=== PATIENT | female | born 1995 | race Two or more races ===

== ENCOUNTER → 2025-04-07 | Outpatient (CLI) | payer OTHER, BC, SELFPAY ==
[2025-04-07 09:57] LABS: Collection Type, Urine Clean Catch
[2025-04-07 10:17] LABS: Basophils # (Auto) 0.0 Thou/mm3 (0.0-0.2); Basophils % (Auto) 1 % (0-2.5); Eosinophils # (Auto) 0.0 Thou/mm3 (0.0-0.5); Eosinophils % (Auto) 1 % (0-10); Hematocrit 40.0 % (36.0-46.0); Hemoglobin 13.3 g/dL (12.0-16.0); Immature Granulocytes Auto 0.02 Thou/mm3 (0.00-0.00); Lymphocytes # (Auto) 2.0 Thou/mm3 (1.0-4.8); Lymphocytes % (Auto) 25 % (10-50); Mean Corpuscular HGB Conc 33.3 g/dl (31.0-37.0); Mean Corpuscular Hemoglobin 30.0 pg (25.0-35.0); Mean Corpuscular Volume 90 fL (80-100); Monocytes # (Auto) 0.4 Thou/mm3 (0.0-0.8); Monocytes % (Auto) 5 % (0-12); Neutrophils # (Auto) 5.4 Thou/mm3 (1.8-7.7); Neutrophils % (Auto) 69 % (37-80); Nucleated Red Blood Cell # 0.00 Thou/mm3 (0.00-0.00); Nucleated Red Blood Cell % 0 /100 WBC (0); Platelet Count 305 Thou/mm3 (140-440); RDW Standard Deviation 41.9 fL (36.4-46.3); Red Blood Count 4.43 Miln/mm3 (4.00-5.20); White Blood Count 7.8 Thou/mm3 (3.6-11.0)
[2025-04-07 10:24] LABS: Bacteria,Urine Rare; Bilirubin,Urine Negative (Negative); Blood,Urine 1+ (Negative); Clarity,Urine Clear (Clear/Hazy); Color,Urine Yellow (Lt Yel-Yel); Culture Indicated,Urine Not Indicated; Glucose, Urine Negative (Negative); Ketones,Urine 1+ (Negative); Leukocyte Esterase,Urine Negative (Negative); Nitrite,Urine Negative (Negative); PH,Urine 6.0 (5.0-7.0); Protein,Urine Trace (Neg - Trace); RBC,Urine 2 /hpf (0-3); Specific Gravity,Urine 1.032 (1.001-1.035); Squamous Epithelial Cell,Urine 2 /hpf (0-5); Urobilinogen,Urine Negative mg/dL (0.0-1.0); WBC,Urine 2 /hpf (0-5)
[2025-04-07 10:30] LABS: Glucose Estimated Average 97 mg/dL (80-131); Hemoglobin A1C 5.0 % Hgb (4.8-6.0)
[2025-04-07 10:38] LABS: Vitamin D 25 Hydroxy Total 22.3 ng/mL (7.3-40.2)
[2025-04-07 10:40] LABS: Alanine Aminotransferase 13 U/L (10-49); Albumin, Serum 4.6 gm/dL (3.5-5.0); Albumin/Globulin Ratio 1.6 (1.2-2.2); Alkaline Phosphatase 69 U/L (46-116); Anion Gap 8 (7-16); Aspartate Amino Transferase 16 U/L (0-34); BUN/Creatinine Ratio 18 Ratio (12-20); Bilirubin,Total 0.7 mg/dL (0.3-1.2); Blood Urea Nitrogen 11 mg/dL (9-23); Calcium 9.0 mg/dL (8.3-10.6); Calcium (Corrected) 9.0 mg/dL (8.5-10.1); Carbon Dioxide 25.3 mMol/L (20.0-31.0); Cardiac Risk Estimate 3.2 RATIO (3.7-5.6); Chloride 106 mMol/L (98-107); Cholesterol 169 mg/dL (132-200); Creatinine (Component) 0.6 mg/dL (0.6-1.3); Globulin 2.8 gm/dL (2.3-3.5); Glucose 93 mg/dL (74-106); HDL Cholesterol 53 mg/dL (40-60); LDL Cholesterol,Calculated 93 mg/dL (0-130); Osmolality,Calculated 276 (275-295); Potassium 4.2 mMol/L (3.4-5.1); Sodium 139 mMol/L (136-145); Thyroid Stimulating Hormone 1.22 uIU/mL (0.55-4.78); Total Protein 7.4 gm/dL (5.7-8.2); Triglycerides 114 mg/dL (30-150); eGFR > 60 See Note
[2025-04-07 11:08] LABS: Urea Breath Test Negative (Negative)
== END | disposition home or self-care (01) ==
LOC: COPL 09:11
PROVIDERS: PCP Nurse Practitioner Family; Referring Provider Nurse Practitioner Family; Visit Provider Nurse Practitioner Family
DX: Z00.00 Encounter for general adult medical examination without abnormal findings (principal); E55.9 Vitamin D deficiency, unspecified; R14.0 Abdominal distension (gaseous)
CPT/HCPCS: 36415; 80053; 80061; 81001; 82306; 83013; 83014; 83036; 84443; 85025

== ENCOUNTER → 2025-06-10 | Outpatient (CLI) | payer OTHER, BC, SELFPAY ==
[2025-06-10 17:05] LABS: HCG Titer if Positive Positive
[2025-06-10 18:06] LABS: Beta HCG,Quantitative 16897 mIU/mL (<5.0)
== END | disposition home or self-care (01) ==
LOC: COPL 16:07
PROVIDERS: PCP Nurse Practitioner Family; Referring Provider Nurse Practitioner Family; Visit Provider Nurse Practitioner Family
DX: Z32.01 Encounter for pregnancy test, result positive (principal)
CPT/HCPCS: 36415; 84702; 84703

== ENCOUNTER 2025-06-28 07:57 | Outpatient (AMB) | payer OTHER, BC, SELFPAY ==
[2025-06-28 08:34] VITALS: BP 110/77; PULSE 84; RESP 17; TEMP 36.7; O2SAT 96; BMI 33.8
--- NOTE | 2025-06-28 08:34 | AMB.OBINITIA ---
Vital Signs 06/28/25 08:34 Height 1.55 m Height Method Stated Weight 81.306 kg Weight Measurement Method Standing Scale BMI 33.8 BP 110/77 Blood Pressure Source Automatic Cuff Blood Pressure Location Right Upper Arm Position Sitting Respiration 17 Pulse 84 Pulse Source Monitor Temp 98.0 F Temp Source Temporal Artery Scan Pulse Oximetry (%) 96 Oxygen Delivery Method Room Air Allergies/Home Meds Allergies & Medications Allergies No Known Allergies Allergy (Verified 06/28/25 08:35) Medication Reconciliation No Known Home Medications 11/03/17 [History Confirmed 06/28/25] Intake Visit Data Collection New Patient or Established: Established Patient (seen at [facility] within 3 years) Reason for Visit:: OBI Seen by Clinical Staff ONLY (RN/MA): No Manager Desktop Required: No Do You Feel Safe at Home: Yes Authorities Contacted: N/A PCP or OBGYN visit in last 3 months: No Hx Now: Yes Are you currently on any form of Control: No Last menstrual period: 04/20/25 Pain Present Currently: No Pain Scale Used: Rivera-Rodriguez/Numerical Pain scale:: 0 Smoking Status Smoking Status: Never smoker Questionnaires Covid-19 Vaccine Questionnaire Has patient been vacinated for Covid-19 Have you been vacinated for Covid-19: No PHQ-9 PHQ-2 Over the last 2 weeks, how often have you been bothered by any of the following problems? 1. Little interest or pleasure in doing things: not at all 2. Feeling down, depressed, or hopeless: not at all Total score: 0 PHQ-9 3. Trouble falling or staying asleep, or sleeping too much: Not at all 4. Feeling tired or having little energy: Not at all 5. Poor appetite or overeating: Not at all 6. Feeling bad about yourself - or that you are a failure or have let yourself or your family down: Not at all 7. Trouble concentrating on things, such as reading the newspaper or watching television: Not at all 8. Moving or speaking so slowly that other people could have noticed? - Or the opposite - being so fidgety or restless that you have been moving around a lot more than usual: not at all 9. Thoughts that you would be better off or of hurting yourself in some way: Not at all Total score: 0 If you checked off any problems, how difficult have these problems made it for you to do your work, take care of things at home, or get along with other people?: not difficult at all Source: Developed by Drs. Carlos Carrasco, Zoe Lr, Scott Jaime and colleagues, with an educational elodia from [employer]. Depression screen completed yes Social History Living Situation History Marital Status: Life Partner Lives With: Family Housing: House Tobacco History Smoking Status: Never smoker Second Hand Smoke Exposure: No Alcohol History Alcohol Intake: Never Domestic Abuse History Do You Feel Safe at Home: Yes History of Present Illness HPI Narrative 29-year-old presents for early visit and for review of ultrasound and lab results. Transvaginal ultrasound shows intrauterine gestational sac measuring 6 weeks which is consistent with no heartbeat and no motion indicating demise. Patient denies any vaginal bleeding or any other complaints. OB Initial Visit Menstrual History Menstrual reliability: definite Flow: normal Menstrual regularity: regular Monthly: Yes Age at menarche: 14 On control pills at conception: No OB History : 2 Para: 1 # of Living Children: 1 Delivery History 1st : Child's name: JOHNSON TRAN date: 05/24/23 sex: female Delivery type: weight (lbs): 3175.147 g History of depression before or after : Yes Infection History & Risk Evaluation History of STDs: none HIV risk evaluation: low risk Hepatitis B risk evaluation: low risk Patient or partner has history of Genital Herpes: No Varicella/chicken pox status: unknown Genetic Screening & History Genetic Screening/Teratology Counseling - Includes patient, baby's father, or anyone in either family with: 1. Patient's age 35 years or older as of estimated date of delivery: No 2. Thalassemia (Polish, Armenian, Mediterranean, or Background); MCV less than 80: No 3. Neural Tube Defect (Meningomyelocele, Spina Bifida, or Anencephaly): No 4. Congenital Heart Defect: No 5. Down Syndrome: No 6. Anton-Sachs (Ashkenazi Advent, Cajun, [place]onian [place]): No 7. Joi Disease (Ashkenazi Advent): No 8. Familial Dysautonomia (Ashkenazi Advent): No 9. Sickle Cell Disease or Trait (): No 10. Hemophilia or other blood disorders: No 11. Muscular Dystrophy: No 12. Cystic Fibrosis: No 13. Stanley's Chorea: No 14. Mental Retardation/Autism: No 15. Other inherited genetic or chromosomal disorder: No 16. Maternal Metabolic Disorder (EG,TYPE 1 Diabetes, PKU): No 17. Patient or baby's father had a child with defects not listed above: No 18. Recurrent loss or a stillbirth: No 19. Medications (including supplements, vitamins, herbs or otc drugs)/illicit/recreational drugs/alcohol since last menstrual period: No 20. Any other: No Infection History 1. Live with someone with TB or exposed to TB: No 2. Rash or viral illness since last menstrual period: No 3. Hepatitis B,C: No Other (see comments) Source: [employer] Exam General General Appearance: alert, in no apparent distress and healthy appearing Head Head exam: atraumatic Neck Neck exam: Present normal inspection and trachea midline Chest Chest inspection: Present normal inspection and symmetric chest wall rise External exam: Present normal external exam; Absent tenderness Neuro Neurological exam: Present oriented X3 Psych Psychiatric exam: Present normal affect and normal mood Office Procedures OBC Clinic LOC & Office Proc's Nursing/Assessment Patient Status: Initial/New Patient OB Clinic Nursing Assessment: Medication Reconciliation, Update PMH in EMR and Vital Signs OB Clinic Coordination of Care: Complex Care and Chronic Disease 1-5, Education Complex Pt/Fam, Consent,records obtained, informed consent, Results/Orders obtained and Staff clarify orders Special Needs: Heart tones New Patient Charge New Patient Point Assignment: 1124 New Patient Point Charge: COMPUTER SYSTEMS AUDITOR Level 4 ([id number]) Assessment & Plan Diagnosis / Problem List (1) Uterine size date discrepancy: Status: Acute Plan 29-year-old with missed at 6 weeks I discussed in detail the management options, including medical management with misoprostol and surgical management with suction dilation and curettage (D&C). The benefits, risks, and alternatives of each option were reviewed comprehensively, including the potential for incomplete evacuation, infection, bleeding, need for additional procedures, and anesthesia-related risks. After careful discussion and review of all options, the patient elected to proceed with suction D&C for definitive management. All questions were answered, and informed consent was obtained.
== END 2025-06-28 09:21 | disposition home or self-care (01) ==
LOC: HODSOBC 07:57
PROVIDERS: Supervising Provider Obstetrics & Gynecology; Visit Provider Obstetrics & Gynecology
DX: O02.1 Missed abortion (principal)
CPT/HCPCS: 99204; G0463

== ENCOUNTER → 2025-06-28 | Outpatient (CLI) | payer OTHER, BC, SELFPAY ==
--- NOTE | 2025-06-28 16:15 | XR_ITS ---
Examination: Complete OB ultrasound, less than 14 weeks, transabdominal Date and time of exam: June 28, 2025, 1630 hours INDICATIONS: Size dates discrepancy Technique: Obstetrical ultrasound images less than 14 weeks performed via transabdominal imaging Findings: Uterus 12.7 cm retroverted Intrauterine gestational sac 2.1 cm corresponds to 7 weeks 0 days gestational age No pole, no cardiac activity Right ovary 3.3 cm arterial flow. Left ovary 3.7 cm arterial flow 25 mm cyst IMPRESSION: Empty intrauterine gestational sac corresponding to 7-week 0-day gestational age Recommend short-term follow-up to exclude demise.
--- NOTE | 2025-06-28 16:15 | XR_ITS ---
Examination: OB Transvaginal ultrasound of the pelvis, complete Technique: Transvaginal sonographic images pelvis performed using jose scale imaging Exam date and time: June 28, 2025, 1644 hours INDICATIONS: Size dates discrepancy FINDINGS: Uterus 10.7 cm CRL 0.4 cm corresponds to 6 weeks 1 day gestational age No cardiac motion, no movement Right ovary 2.9 cm arterial flow. Left ovary 3.6 cm arterial flow 25 mm cyst IMPRESSION: Findings consistent with demise, recommend short-term follow-up transvaginal pelvic sonography.
[2025-06-28 16:33] LABS: Misc Send Out* See Sep Rpt
[2025-06-28 16:51] LABS: Collection Type, Urine Clean Catch
[2025-06-28 17:53] LABS: Bacteria,Urine Rare; Bilirubin,Urine Negative (Negative); Blood,Urine Negative (Negative); Budding Yeast,Urine Present; Clarity,Urine Clear (Clear/Hazy); Color,Urine Yellow (Lt Yel-Yel); Culture Indicated,Urine Not Indicated; Glucose, Urine Negative (Negative); Ketones,Urine 1+ (Negative); Leukocyte Esterase,Urine Positive (Negative); Nitrite,Urine Negative (Negative); PH,Urine 6.5 (5.0-7.0); Protein,Urine Trace (Neg - Trace); RBC,Urine 9 /hpf (0-3); Specific Gravity,Urine 1.026 (1.001-1.035); Squamous Epithelial Cell,Urine 56 /hpf (0-5); Urobilinogen,Urine Negative mg/dL (0.0-1.0); WBC,Urine 8 /hpf (0-5)
[2025-06-28 19:53] LABS: Syphilis Nonreactive (Nonreactive)
[2025-06-28 20:16] LABS: Hepatitis B Surface Antigen Non Reactive (Non React); Hepatitis C Antibody Non Reactive (Non React); Rubella, IgG Antibody Reactive (Immune)
[2025-06-29 09:39] LABS: Chlamydia trachomatis PCR Negative (Not Detect); Neisseria Gonorrhoeae DNA PCR Negative (Not Detect); Trichomonas Negative (Negative)
== END | disposition home or self-care (01) ==
LOC: CDIM 16:06 → COPL 16:15 → CDIM 08-05 09:12
PROVIDERS: PCP Family Medicine; Referring Provider Obstetrics & Gynecology; Visit Provider Obstetrics & Gynecology
DX: O26.849 Uterine size-date discrepancy, unspecified trimester (principal)
CPT/HCPCS: 36415; 76801; 76817; 81001; 86762; 86780; 86787; 86803; 86850; 86900; 86901; 87340; 87491; 87591; 87661

== ENCOUNTER 2025-07-07 06:45 | Day surgery (SDC) | payer OTHER, BC, SELFPAY ==
[2025-07-06 06:29] VITALS: BMI 34.0
[2025-07-06 08:18] LABS: Alanine Aminotransferase 8 U/L (10-49); Albumin, Serum 4.6 gm/dL (3.5-5.0); Albumin/Globulin Ratio 1.9 (1.2-2.2); Alkaline Phosphatase 59 U/L (46-116); Anion Gap 10 (7-16); Aspartate Amino Transferase 15 U/L (0-34); BUN/Creatinine Ratio 12 Ratio (12-20); Bilirubin,Total 0.6 mg/dL (0.3-1.2); Blood Urea Nitrogen 7 mg/dL (9-23); Calcium 9.1 mg/dL (8.3-10.6); Calcium (Corrected) 9.1 mg/dL (8.5-10.1); Carbon Dioxide 24.9 mMol/L (20.0-31.0); Chloride 106 mMol/L (98-107); Creatinine (Component) 0.6 mg/dL (0.6-1.3); Estimated Creatinine Clearance 136.3 mL/min (>60); Globulin 2.4 gm/dL (2.3-3.5); Glucose 95 mg/dL (74-106); Osmolality,Calculated 279 (275-295); Potassium 4.1 mMol/L (3.4-5.1); Sodium 141 mMol/L (136-145); Total Protein 7.0 gm/dL (5.7-8.2); eGFR > 60 See Note
[2025-07-07] VITALS (7 sets, daily range): BP systolic 106–133; BP diastolic 75–88; PULSE 10–101; RESP 14–20; TEMP 36.4–37; O2SAT 95–100; BMI 33.4
[2025-07-07] MEDS: RINGERS LACTATED 1000 ML 1,000 ML 20 ML IV (07:24)
[2025-07-07 07:42] LABS: Basophils # (Auto) 0.0 Thou/mm3 (0.0-0.2); Basophils % (Auto) 1 % (0-2.5); Eosinophils # (Auto) 0.1 Thou/mm3 (0.0-0.5); Eosinophils % (Auto) 1 % (0-10); Hematocrit 36.6 % (36.0-46.0); Hemoglobin 12.7 g/dL (12.0-16.0); Immature Granulocytes Auto 0.02 Thou/mm3 (0.00-0.00); Lymphocytes # (Auto) 1.7 Thou/mm3 (1.0-4.8); Lymphocytes % (Auto) 24 % (10-50); Mean Corpuscular HGB Conc 34.7 g/dl (31.0-37.0); Mean Corpuscular Hemoglobin 30.7 pg (25.0-35.0); Mean Corpuscular Volume 88 fL (80-100); Monocytes # (Auto) 0.4 Thou/mm3 (0.0-0.8); Monocytes % (Auto) 5 % (0-12); Neutrophils # (Auto) 5.0 Thou/mm3 (1.8-7.7); Neutrophils % (Auto) 69 % (37-80); Nucleated Red Blood Cell # 0.00 Thou/mm3 (0.00-0.00); Nucleated Red Blood Cell % 0 /100 WBC (0); Platelet Count 285 Thou/mm3 (140-440); RDW Standard Deviation 42.3 fL (36.4-46.3); Red Blood Count 4.14 Miln/mm3 (4.00-5.20); White Blood Count 7.3 Thou/mm3 (3.6-11.0)
--- NOTE | 2025-07-07 09:19 | PD.GYNPROC ---
Operative Note - RESISTANCE WELDER Procedure Date of procedure: 07/07/25 Procedure Performed: Suction dilatation and curettage Indication: Missed at 6 weeks Anesthesia type: General Procedure description: Informed consent was obtained and the patient was taken to the operating room. Identity was confirmed using two patient identifiers. The patient was positioned on the operating table, and general anesthesia was administered. She was then placed in the dorsal lithotomy position using Rakan stirrups. The perineum was prepped and draped in the usual sterile fashion. A straight catheter was used to empty the bladder. A weighted speculum was placed in the posterior vaginal fornix, and a right-angle retractor was used to retract the anterior vaginal wall. An atraumatic grasper was used to gently grasp the anterior lip of the cervix, which was placed under traction. Cervical length from the external to internal os was assessed, and a uterine sound was used to measure uterine depth. The cervix was noted to be dilated to approximately 6 mm. Dilator were used to dilate the cervix to 8mm. A 8 mm suction cannula was introduced through the cervical os, and multiple gentle passes were performed until evacuation of all tissue and blood clots was complete. Endometrial grating was palpated, and the uterus was noted to have contracted appropriately. The suction cannula was removed, and a gentle curettage was performed using a standard curette. All instruments were then withdrawn. Uterine bleeding was minimal. The atraumatic grasper was removed from the cervix, which was visualized and found to be hemostatic. The speculum was removed from the vaginal canal. The patient was then cleaned, undraped, and taken out of the lithotomy position. General anesthesia was reversed, and the patient was transferred to the recovery room in stable and awake condition. The procedure was well tolerated. All instrument, sponge, and lap counts were correct ?2. Estimated blood loss (ml): 200 Complications: none Surgical staff Operation Date: 07/07/25 09:00 Case Staff Anesthesiologist: Grey Lynch Diagnosis Discharge Diagnosis (1) Missed : Status: Acute Problem List Completed Was Problem List Reviewed/Reconciled?: Yes
--- NOTE | 2025-07-07 09:25 | SUR.PHASEI ---
0902 Patient arrived to recovery resting comfortably in [facility], on oxygen 4L via nasal cannula, breathing unlabored, vital signs stable, denies pain and nausea, dressing intact to vaginal area; peripad, no bleeding noted, report received from Dr. Lynch and Claudia GUSTAFSON
--- NOTE | 2025-07-07 10:20 | SUR.PHASEII ---
1020 patient meets discharge criteria from recovery, awake and alert, breathing unlabored, vital signs stable, denies pain and nausea, ate a jello and drinking 7up; tolerated well, assisted with dressing into her clothing by her , dressing intact; no bleeding noted, discharge instructions given to patient and patients , signed discharge instructions. Patient given all her belongings prior to discharge, transported via wheelchair and left in a private vehicle.
[2025-07-07 10:51] LABS: Misc Send Out* See Sep Rpt
== END 2025-07-07 09:50 | disposition home or self-care (01) ==
PROVIDERS: PCP Anesthesiology; Referring Provider Obstetrics & Gynecology; Visit Provider Obstetrics & Gynecology
PROC: (CPT 58120; principal; 2025-07-07 08:45)
DX: O02.1 Missed abortion (principal)
CPT/HCPCS: 59820; 36415; 80053; 85025; 86850; 86900; 86901; 88233; 88262; 88291; A4217; A4649; J1100; J2704; J2765; J3010; J3490; J7120

== ENCOUNTER → 2025-07-15 | Outpatient (CLI) | payer OTHER, BC, SELFPAY ==
--- NOTE | 2025-07-15 16:12 | XR_ITS ---
Examination: Lumbar spine, 5 views Technique: Lumbar spine AP, lateral, coned lateral lower lumbar spine, bilateral obliques 5 views Exam date and time: July 15, 2025, 1417 hours INDICATIONS: Low back pain 1 year, worse the last month. FINDINGS: Adequate limit lumbar vertebral bodies Moderate disc narrowing posteriorly L5-S1 No lumbar fracture. No spondylolisthesis IMPRESSION: Moderate disc narrowing posteriorly L5-S1
== END | disposition home or self-care (01) ==
PROVIDERS: PCP Nurse Practitioner Family; Referring Provider Nurse Practitioner Family; Visit Provider Nurse Practitioner Family
DX: M48.07 Spinal stenosis, lumbosacral region (principal)
CPT/HCPCS: 72110

== ENCOUNTER 2025-07-22 08:05 | Outpatient (AMB) | payer OTHER, BC, SELFPAY ==
--- NOTE | 2025-07-22 08:37 | AMB.GYNCLNOT ---
Vital Signs 07/22/25 08:38 Weight 81.193 kg Weight Measurement Method Standing Scale BP 131/91 H Blood Pressure Source Automatic Cuff Blood Pressure Location Left Upper Arm Position Sitting Respiration 18 Pulse 104 H Pulse Source Monitor Temp 97.2 F Temp Source Oral Pulse Oximetry (%) 98 Oxygen Delivery Method Room Air Allergies/Home Meds Allergies & Medications Allergies No Known Allergies Allergy (Verified 07/06/25 06:27) Intake Visit Data Collection New Patient or Established: Established Patient (seen at [facility] within 3 years) Reason for Visit:: POST OP Seen by Clinical Staff ONLY (RN/MA): No Parts Room Clerk Required: No Do You Feel Safe at Home: Yes Authorities Contacted: N/A PCP or OBGYN visit in last 3 months: Yes Date of Last PCP or OBGYN visit: 07/07/25 Hx Now: No Are you currently on any form of Control: No Last menstrual period: 04/21/25 Pain Present Currently: No Pain Scale Used: Rivera-Rodriguez/Numerical Pain scale:: 0 Smoking Status Smoking Status: Never smoker Immunizations Flu Vaccine in the Last 12 Months: No Flu Vaccine Exclusion Criteria: No Exclusion Criteria Supervisor Tree Trimming history Supervisor Tree Trimming History Menstrual regularity: regular Flow: normal Monthly: Yes Age at menarche: 15 Menopausal: No Currently sexually active: Yes If not currently sexually active, have you ever been sexually active: No COLLEGE SPECIALIST: Past Medical History Past Medical History: No Hx Neurological Disorders, No Hx Cardiac Disorders, No Hx Cancer, No Hx Blood Disorders, No Hx Gastrointestinal Disorders, No Hx Renal Disease, No Hx Diabetes Mellitus Type 1 and No Hx Diabetes Mellitus Type 2 Questionnaires Covid-19 Vaccine Questionnaire Has patient been vacinated for Covid-19 Have you been vacinated for Covid-19: Yes PHQ-9 PHQ-2 Over the last 2 weeks, how often have you been bothered by any of the following problems? 1. Little interest or pleasure in doing things: not at all 2. Feeling down, depressed, or hopeless: not at all Total score: 0 PHQ-9 3. Trouble falling or staying asleep, or sleeping too much: Not at all 4. Feeling tired or having little energy: Not at all 5. Poor appetite or overeating: Not at all 6. Feeling bad about yourself - or that you are a failure or have let yourself or your family down: Not at all 7. Trouble concentrating on things, such as reading the newspaper or watching television: Not at all 8. Moving or speaking so slowly that other people could have noticed? - Or the opposite - being so fidgety or restless that you have been moving around a lot more than usual: not at all 9. Thoughts that you would be better off or of hurting yourself in some way: Not at all Total score: 0 If you checked off any problems, how difficult have these problems made it for you to do your work, take care of things at home, or get along with other people?: not difficult at all Source: Developed by Drs. Carlos Carrasco, Zoe Lr, Scott Jaime and colleagues, with an educational elodia from [employer]. Depression screen completed yes Social History Living Situation History Lives With: Family Housing: House Tobacco History Smoking Status: Never smoker Second Hand Smoke Exposure: No Alcohol History Alcohol Intake: Never Domestic Abuse History Do You Feel Safe at Home: Yes History of Present Illness HPI Narrative Jazmin Candelaria presents for follow-up after a recent miscarriage. She reports experiencing bleeding that began on the first day, described as heavy bleeding on , followed by medical physicist spotting on Friday. The bleeding then stopped but resumed the following Friday and continued for a full week. The patient inquired whether this bleeding pattern resembled a normal menstrual cycle, noting the irregular nature of the bleeding episodes. She has an obstetric history of G1 T0 L0 with a recent miscarriage confirmed by pathology, with no abnormal findings or signs of infection. The patient has been taking vitamin. ROS: Negative except as stated above, limited to COLLEGE SPECIALIST and pertinent complaints. Exam General General Appearance: alert, in no apparent distress and healthy appearing Head Head exam: atraumatic Neck Neck exam: Present normal inspection and trachea midline Chest Chest inspection: Present normal inspection and symmetric chest wall rise External exam: Present normal external exam; Absent tenderness Neuro Neurological exam: Present oriented X3 Psych Psychiatric exam: Present normal affect and normal mood Office Procedures OBC Clinic LOC & Office Proc's Nursing/Assessment Patient Status: Established Patient OB Clinic Nursing Assessment: Medication Reconciliation, Update PMH in EMR and Vital Signs OB Clinic Coordination of Care: Consent,records obtained, informed consent, Education Simp Pt/Fam, Lab and Imaging orders, Results/Orders obtained and Staff clarify orders Special Needs: Heart tones Established Patient Charge Established Patient Point Assignment: 110 Established Patient Point Charge: EP Level 3 (80-115) Assessment & Plan Diagnosis / Problem List (1) Complete or unspecified spontaneous without complication: Status: Acute Plan Miscarriage with pathology results: - Pathology results on tissue confirm miscarriage with no abnormal findings. - No signs of infection identified. - Bleeding pattern described as initial bleeding for first day, light spotting second day, cessation, then resumption for one week starting Friday, which is consistent with typical post-miscarriage bleeding pattern. Plan: - No further intervention required based on normal pathology results. - Wait at least 2 cycles (approximately 2 months) for menstrual cycles to normalize before attempting conception. - Continue vitamin if available. - Bleeding pattern expected to reset menstrual cycle with next period occurring approximately one month from recent bleeding episode.
[2025-07-22 08:38] VITALS: BP 131/91; PULSE 104; RESP 18; TEMP 36.2; O2SAT 98
== END 2025-07-22 09:38 | disposition home or self-care (01) ==
LOC: HODSOBC 08:05
PROVIDERS: PCP Anesthesiology; Referring Provider Anesthesiology; Supervising Provider Obstetrics & Gynecology; Visit Provider Obstetrics & Gynecology
DX: O03.9 Complete or unspecified spontaneous abortion without complication (principal)
CPT/HCPCS: 99213; G0463

== ENCOUNTER → 2025-08-25 | Outpatient (CLI) | payer OTHER, BC, SELFPAY ==
--- NOTE | 2025-08-25 16:38 | XR_ITS ---
EXAMINATION: Cervical spine, 5 views Technique: Cervical spine AP, AP odontoid, lateral, bilateral obliques, 5 views Exam date and time: August 25, 2025, 1646 hours INDICATIONS: Neck pain with leg numbness 1 year. FINDINGS: Straightening normal cervical lordosis Intact odontoid No cervical fracture No cervical disc narrowing No neural foraminal stenosis IMPRESSION: No cervical fracture or cervical disc narrowing
== END | disposition home or self-care (01) ==
LOC: SDIM 16:27
PROVIDERS: PCP Nurse Practitioner Family; Referring Provider Physician Assistant; Visit Provider Physician Assistant
DX: M54.2 Cervicalgia (principal)
CPT/HCPCS: 72050

== ENCOUNTER → 2025-08-27 | Outpatient (CLI) | payer OTHER, BC, SELFPAY ==
--- NOTE | 2025-08-27 08:00 | XR_ITS ---
Examination: MRI lumbar spine without contrast Date and time of exam: August 27, 2025, 0806 hours INDICATIONS: Lower back pain radiating down the left leg with numbness in the left leg 1 year. Technique: Multiple MRI axial and sagittal sections lumbar spine. Sagittal T2-weighted images, TR 3500, TE 118 T1 weighted transverse sections, TR 688 T8.5, T2-weighted sagittal sections T1 weighted sagittal sections TR 621, TE 30 T2 axial sections, TR 4, 190, TE 84. Findings: Satisfactory alignment lumbar vertebral bodies No lumbar fracture. No lumbar disc narrowing. No lumbar disc desiccation Normal marrow signal lumbar vertebral bodies Axial images demonstrate no focal lumbar disc protrusion IMPRESSION: Negative study
== END | disposition home or self-care (01) ==
LOC: SMRI 07:34
PROVIDERS: PCP Nurse Practitioner Family; Referring Provider Physician Assistant; Visit Provider Nurse Practitioner Family
DX: M54.50 Low back pain, unspecified (principal); R20.2 Paresthesia of skin
CPT/HCPCS: 72148

== ENCOUNTER → 2025-09-12 | Outpatient (CLI) | payer BC, SELFPAY ==
[2025-09-12 10:22] LABS: Basophils # (Auto) 0.0 Thou/mm3 (0.0-0.2); Basophils % (Auto) 0 % (0-2.5); Eosinophils # (Auto) 0.1 Thou/mm3 (0.0-0.5); Eosinophils % (Auto) 1 % (0-10); Hematocrit 38.8 % (36.0-46.0); Hemoglobin 12.8 g/dL (12.0-16.0); Immature Granulocytes Auto 0.03 Thou/mm3 (0.00-0.00); Lymphocytes # (Auto) 2.2 Thou/mm3 (1.0-4.8); Lymphocytes % (Auto) 30 % (10-50); Mean Corpuscular HGB Conc 33.0 g/dl (31.0-37.0); Mean Corpuscular Hemoglobin 29.8 pg (25.0-35.0); Mean Corpuscular Volume 90 fL (80-100); Monocytes # (Auto) 0.4 Thou/mm3 (0.0-0.8); Monocytes % (Auto) 5 % (0-12); Neutrophils # (Auto) 4.6 Thou/mm3 (1.8-7.7); Neutrophils % (Auto) 63 % (37-80); Nucleated Red Blood Cell # 0.00 Thou/mm3 (0.00-0.00); Nucleated Red Blood Cell % 0 /100 WBC (0); Platelet Count 298 Thou/mm3 (140-440); RDW Standard Deviation 41.3 fL (36.4-46.3); Red Blood Count 4.30 Miln/mm3 (4.00-5.20); White Blood Count 7.3 Thou/mm3 (3.6-11.0)
[2025-09-12 11:00] LABS: Alanine Aminotransferase 12 U/L (10-49); Albumin, Serum 4.4 gm/dL (3.5-5.0); Albumin/Globulin Ratio 1.4 (1.2-2.2); Alkaline Phosphatase 71 U/L (46-116); Anion Gap 9 (7-16); Aspartate Amino Transferase 15 U/L (0-34); BUN/Creatinine Ratio 17 Ratio (12-20); Bilirubin,Total 0.5 mg/dL (0.3-1.2); Blood Urea Nitrogen 10 mg/dL (9-23); Calcium 9.1 mg/dL (8.3-10.6); Calcium (Corrected) 9.1 mg/dL (8.5-10.1); Carbon Dioxide 25.9 mMol/L (20.0-31.0); Chloride 106 mMol/L (98-107); Creatinine (Component) 0.6 mg/dL (0.6-1.3); Globulin 3.2 gm/dL (2.3-3.5); Glucose 83 mg/dL (74-106); Lipase 26 U/L (12-53); Osmolality,Calculated 279 (275-295); Potassium 4.0 mMol/L (3.4-5.1); Sodium 141 mMol/L (136-145); Total Protein 7.6 gm/dL (5.7-8.2); eGFR > 60 See Note
[2025-09-12 11:21] LABS: Collection Type, Urine Clean Catch
[2025-09-12 12:17] LABS: Glucose Estimated Average 97 mg/dL (80-131); Hemoglobin A1C 5.0 % Hgb (4.8-6.0)
[2025-09-12 12:26] LABS: Bacteria,Urine Rare; Bilirubin,Urine Negative (Negative); Blood,Urine Negative (Negative); Clarity,Urine Clear (Clear/Hazy); Color,Urine Lt-Yellow (Lt Yel-Yel); Culture Indicated,Urine Not Indicated; Glucose, Urine Negative (Negative); Ketones,Urine Negative (Negative); Leukocyte Esterase,Urine Negative (Negative); Nitrite,Urine Negative (Negative); PH,Urine 6.5 (5.0-7.0); Protein,Urine Negative (Neg - Trace); RBC,Urine 1 /hpf (0-3); Specific Gravity,Urine 1.028 (1.001-1.035); Squamous Epithelial Cell,Urine 5 /hpf (0-5); Urobilinogen,Urine Negative mg/dL (0.0-1.0); WBC,Urine < 1 /hpf (0-5)
[2025-09-12 13:20] LABS: Follicle Stimulating Hormone 2.41 mIU/mL (See Note); Vitamin B12 394 pg/mL (211-911); Vitamin D 25 Hydroxy Total 19.5 ng/mL (7.3-40.2)
[2025-09-20 06:31] LABS: DHEA Sulfate* 245 mcg/dL (18-391)
[2025-09-20 06:32] LABS: Estradiol, Ultrasensitive* 112 pg/mL; Testosterone, Free,Dialysis 6.6 pg/mL (0.1-6.4); Testosterone, Total, Dialysis 47 ng/dL (2-45)
== END | disposition home or self-care (01) ==
PROVIDERS: PCP Family Medicine; Referring Provider Nurse Practitioner Family; Visit Provider Nurse Practitioner Family
DX: O03.9 Complete or unspecified spontaneous abortion without complication (principal); R53.83 Other fatigue; F41.1 Generalized anxiety disorder
CPT/HCPCS: 36415; 80053; 81001; 82306; 82607; 82627; 82670; 83001; 83036; 83690; 84402; 84403; 85025